=== PATIENT | female | born 1995 | race Caucasian/White ===

== ENCOUNTER 2020-01-26 11:01 | Outpatient (CLI) | payer OTHER, SELFPAY ==
[2020-01-27 14:19] LABS: SARS-CoV-2 RNA PCR Negative
== END 2020-01-26 11:02 | disposition home or self-care (01) ==
LOC: CHSLAB 11:15
PROVIDERS: PCP Internal Medicine; Visit Provider Internal Medicine
DX: Z20.828 Contact with and (suspected) exposure to other viral communicable diseases (principal)
CPT/HCPCS: 87635; C9803; U0003

== ENCOUNTER 2020-06-17 09:10 | Outpatient (CLI) | payer OTHER, SELFPAY ==
[2020-06-17 10:09] LABS: SARS-CoV-2 Ag Positive (Negative)
== END 2020-06-17 09:11 | disposition home or self-care (01) ==
LOC: CHSLAB 09:11
PROVIDERS: PCP Internal Medicine; Visit Provider Internal Medicine
DX: U07.1 COVID-19 (principal)
CPT/HCPCS: 87426; C9803

== ENCOUNTER 2020-08-16 08:05 | Outpatient (CLI) | payer OTHER, SELFPAY ==
--- NOTE | ~2020-08-16 | US_ITS ---
EXAMINATION: US pelvic complete w TV EXAM DATE: 08/16/2020 08:56 INDICATION: Irregular menstruation . TECHNIQUE: Pelvic transabdominal and transvaginal sonogram was performed. There are multiple graysca le and Doppler images available for interpretation. There is no prior study for comparison. FINDINGS: Uterus measures 6.3 x 3.4 x 4.6 cm, and is morphologically normal. Endometrial stripe malorie sures 5 mm, within normal limits. There is no free pelvic fluid. Right adnexa: The ovary measures 1.5 x 3.7 x 1.4 cm and is morphologically normal. Ovarian vascular f low confirmed. Left adnexa: The ovary measures 1.9 x 3.0 x 1.8 cm and is morphologically normal. Ovarian vascular fl ow confirmed. IMPRESSION: 1. Unremarkable pelvic ultrasound exam. Reviewed, dictated and finalized at location B. R SECURITY ADMINISTRATOR
== END 2020-08-16 08:06 | disposition home or self-care (01) ==
LOC: CHSIMG 08:09
PROVIDERS: PCP Internal Medicine; Visit Provider Obstetrics & Gynecology
DX: N92.6 Irregular menstruation, unspecified (principal)
CPT/HCPCS: 76830; 76856

== ENCOUNTER 2020-12-01 07:29 | Outpatient (CLI) | payer OTHER, SELFPAY ==
--- NOTE | ~2020-12-01 | US_ITS ---
EXAMINATION: US OB <= 14 weeks fetus DATE: 12/01/2020 10:45 INDICATION: Gestational dating TECHNIQUE: Real-time transabdominal and transvaginal obstetric ultrasound. FINDINGS: Ultrasound dated 08/16/2020 The uterus measures 10.3 x 5.2 x 5.5 cm. There is an intrauterine gestational sac, with pole id entified. The crown rump length measures 1.25 cm, which correlates with a estimated gestational age of 7 weeks 3 days. heart tones are identified measuring 155 BPM. Right ovary is not visualize d. Left ovary is unremarkable measuring 3.1 x 2.5 x 1.4 cm. IMPRESSION: 1. SL IUP with an EGA of 7 weeks, 3 days (EDC by current ultrasound of 07/17/2021). Reviewed, dictated and finalized at location B. IMPRESSION: 1. SL IUP with an EGA of 7 weeks, 3 days (EDC by current ultrasound of 07/17/19).
[2020-12-01 08:03] LABS: Basophils Absolute Auto 0.04 K/mm3 (0.00-0.10); Basophils Percent Auto 0.4 % (0.0-1.0); Eosinophils Absolute Auto 0.14 K/mm3 (0.02-0.50); Eosinophils Percent Auto 1.5 % (1.0-6.0); Hematocrit 40.9 % (35.0-49.0); Hemoglobin 13.7 g/dL (12.0-15.0); Immature Granulocyte Absolute 0.04 K/mm3 (0.00-0.00); Immature Granulocyte Percent A 0.4 % (0.0-0.0); Lymphocytes Absolute Auto 1.87 K/mm3 (1.10-4.50); Lymphocytes Percent Auto 20.2 % (18.0-42.0); Mean Corpuscular HGB Conc 33.5 g/dL (32.0-36.0); Mean Corpuscular Volume 86.7 fL (78.0-102.0); Mean Platelet Volume 10.1 fl (9.2-11.8); Monocytes Absolute Auto 0.41 K/mm3 (0.10-0.90); Monocytes Percent Auto 4.4 % (2.0-11.0); Neutrophils Absolute Auto 6.8 K/mm3 (1.7-7.2); Neutrophils Percent Auto 73.1 % (50.0-70.0); Platelet Count Result 324 K/mm3 (150-420); Red Blood Count 4.72 M/mm3 (4.20-5.40); Red Cell Distribution Width 12.6 % (11.6-14.4); White Blood Count 9.3 K/mm3 (4.8-10.8)
[2020-12-01 09:14] LABS: HIV 1 P24 AG Negative (Negative); HIV 1/2 AB Negative (Negative)
[2020-12-04 12:46] LABS: RPR Screen Non-Reactive (Non-Reactive)
[2020-12-04 14:10] LABS: Rubella IgG Antibody <0.90 Index
[2020-12-04 16:16] LABS: CMV IgG Antibody <0.60 U/mL (<0.60)
[2020-12-04 19:33] LABS: Hepatitis B Surface Antigen Nonreactive (Nonreactive)
== END 2020-12-01 07:30 | disposition home or self-care (01) ==
LOC: CHSIMG 07:31
PROVIDERS: PCP Internal Medicine; Visit Provider Obstetrics & Gynecology
DX: N92.5 Other specified irregular menstruation (principal)
CPT/HCPCS: 36415; 76801; 84702; 85025; 86592; 86644; 86703; 86747; 86762; 86787; 86850; 86900; 86901; 87086; 87088

== ENCOUNTER 2021-04-25 07:14 | Outpatient (CLI) | payer OTHER, SELFPAY ==
[2021-04-25 07:38] LABS: Basophils Absolute Auto 0.03 K/mm3 (0.00-0.10); Basophils Percent Auto 0.3 % (0.0-1.0); Eosinophils Absolute Auto 0.13 K/mm3 (0.02-0.50); Eosinophils Percent Auto 1.3 % (1.0-6.0); Hematocrit 36.1 % (35.0-49.0); Hemoglobin 11.8 g/dL (12.0-15.0); Immature Granulocyte Absolute 0.07 K/mm3 (0.00-0.00); Immature Granulocyte Percent A 0.7 % (0.0-0.0); Lymphocytes Absolute Auto 1.49 K/mm3 (1.10-4.50); Lymphocytes Percent Auto 15.2 % (18.0-42.0); Mean Corpuscular HGB Conc 32.7 g/dL (32.0-36.0); Mean Corpuscular Hemoglobin 29.5 pg (27.0-31.0); Mean Corpuscular Volume 90.3 fL (78.0-102.0); Mean Platelet Volume 9.9 fl (9.2-11.8); Monocytes Absolute Auto 0.55 K/mm3 (0.10-0.90); Monocytes Percent Auto 5.6 % (2.0-11.0); Neutrophils Absolute Auto 7.5 K/mm3 (1.7-7.2); Neutrophils Percent Auto 76.9 % (50.0-70.0); Platelet Count Result 259 K/mm3 (150-420); Red Cell Distribution Width 13.6 % (11.6-14.4); White Blood Count 9.8 K/mm3 (4.8-10.8)
[2021-04-25 08:09] LABS: Glucose 1 Hour PP 50gm Dose 120 mg/dL (70-130)
[2021-04-25 08:43] LABS: HIV 1 P24 AG Negative (Negative); HIV 1/2 AB Negative (Negative)
== END 2021-04-25 07:15 | disposition home or self-care (01) ==
LOC: CHSLAB 07:16
PROVIDERS: Obstetrics & Gynecology; PCP Internal Medicine; Visit Provider Obstetrics & Gynecology
DX: Z34.02 Encounter for supervision of normal first pregnancy, second trimester (principal)
CPT/HCPCS: 36415; 82947; 85025; 86703

== ENCOUNTER 2021-07-11 15:45 | Inpatient (IN) | payer OTHER, SELFPAY ==
[2021-07-11] VITALS (92 sets, daily range): BP systolic 99–147; BP diastolic 41–105; PULSE 74–180; RESP 16–18; TEMP 36.9–37.1; O2SAT 91–100; BMI 32.4
[2021-07-11] MEDS: DINOPROSTONE 10 MG VAG INSERT VAGINAL (16:57)
[2021-07-11 17:06] LABS: Basophils Percent Auto 0.2 % (0.2-1.2); Eosinophils Absolute Auto 0.1 K/mm3 (0-0.3); Eosinophils Percent Auto 0.9 % (0-4.4); Hematocrit 36.6 % (37.0-47.0); Hemoglobin 12.6 g/dL (12.0-15.0); Immature Granulocyte Absolute 0.04 K/mm3 (0.00-0.031); Immature Granulocyte Percent A 0.4 % (0-0.5); Lymphocytes Absolute Auto 1.85 K/mm3 (0.9-3.2); Lymphocytes Percent Auto 20.4 % (18.3-44.2); Mean Corpuscular HGB Conc 34.4 g/dl (32-36); Mean Corpuscular Hemoglobin 29.6 pg (26-34); Mean Corpuscular Volume 85.9 fl (80-100); Mean Platelet Volume 11.2 fl (7.4-10.4); Monocytes Absolute Auto 0.6 K/mm3 (0.1-0.6); Monocytes Percent Auto 6.1 % (2.6-8.5); Neutrophils Absolute Auto 6.5 K/mm3 (1.3-6.7); Platelet Count Result 219 k/mm3 (150-375); Red Blood Count 4.26 M/mm3 (4.2-5.4); Red Cell Distribution Width 14.1 % (11.5-14.5); White Blood Count 9.1 K/mm3 (4.5-10.0)
[2021-07-11] MEDS: fentaNYL CITRATE INJ (*CRX) 100 MCG/2 ML VIAL 50 MCG IV PUSH (18:33)
[2021-07-11] MEDS: LACTATED RINGERS 1,000 ML 999 ML IV CONT (20:10)
--- NOTE | 2021-07-11 20:33 | WPDANESEPP ---
Anes - Eval Pre Procedure Procedure: LAbor epidural Date/Time: 07/11/21 20:33 Surgeon: Bud Preop Diagnosis: Abd pain with contractions Pre Op Diagnosis: Induction of Labor Patient Data Age: 25 Gender: F Height: 1.6 m Weight: 83 kg Last Vital Signs Temp 98.4 F 07/11/21 18:09 Pulse 131 H 07/11/21 20:31 Resp 16 07/11/21 19:08 BP 128/105 H 07/11/21 20:31 Pulse Ox 100 07/11/21 20:33 Allergies Allergy/AdvReac Type Severity Reaction Status Date / Time hydrocodone Allergy Mild Rash Verified 06/29/21 15:25 Home Medications Medication Instructions Recorded Confirmed Type vitamins-iron fumarate 65 1 tablet PO DAILY 06/20/21 07/06/21 History mg iron-folic acid 1 mg tablet Laboratory Tests 07/11/21 07/11/21 07/11/21 16:50 16:50 16:50 WBC 9.1 K/mm3 K/mm3 (4.5-10.0) RBC 4.26 M/mm3 M/mm3 (4.2-5.4) Hgb 12.6 g/dL g/dL (12.0-15.0) Hct 36.6 % L % (37.0-47.0) MCV 85.9 fl fl (80-100) MCH 29.6 pg pg (26-34) MCHC 34.4 g/dl g/dl (32-36) RDW 14.1 % % (11.5-14.5) Plt Count 219 k/mm3 k/mm3 (150-375) MPV 11.2 fl H fl (7.4-10.4) Immature Gran % (Auto) 0.4 % % (0-0.5) Neut % (Auto) 72.0 % % (45.5-73.1) Lymph % (Auto) 20.4 % % (18.3-44.2) [place] % (Auto) 6.1 % % (2.6-8.5) Eos % (Auto) 0.9 % % (0-4.4) Baso % (Auto) 0.2 % % (0.2-1.2) Lymph # (Auto) 1.85 K/mm3 K/mm3 (0.9-3.2) [place] # (Auto) 0.6 K/mm3 K/mm3 (0.1-0.6) Eos # (Auto) 0.1 K/mm3 K/mm3 (0-0.3) Baso # (Auto) 0.0 K/mm3 K/mm3 (0.0-0.1) Abs Immat Gran (auto) 0.04 K/mm3 H K/mm3 (0.00-0.031) Absolute Neuts (auto) 6.5 K/mm3 K/mm3 (1.3-6.7) Absolute Nucleated RBC 0.0 K/mm3 K/mm3 (0.0-0.012) Nucleated RBC % 0.0 % % (0.0-0.2) RPR Pending Blood Type O Positive Antibody Screen Negative Patient hx anesthesia problems: none Family hx anesthesia problems: none Results Review: All pre-operative results and documents have been reviewed as part of the pre-operative evaluation. [facility] Past Medical History Medical History Over weight and not yet delivered Surgical History Surgical History Osseo teeth removed Family History Family History Mother Hypertension Father Hypertension Grandparent Diabetes mellitus Hypertension Grandparent No problems noted. Grandparent Diabetes mellitus Liver cancer Social History Social History Smoking status: Never smoker Second hand tobacco smoke exposure: No Alcohol intake: never Substance use: never Additional living arrangements comments: spouse Additional occupation/education comments: clerical Gender identity (if verbalized by the patient): Female Sexual Orientation (if Verbalized by the Patient): Straight or Heterosexual Spiritual care concerns: No Exam Day of Procedure 07/11/21 20:33 Patient weight: obese Airway: Mallampati scale class II Neurological: alert and oriented
[2021-07-11] MEDS: fentaNYL CITRATE INJ (*CRX) 100 MCG/2 ML VIAL IV PUSH (20:45)
[2021-07-12] VITALS (213 sets, daily range): BP systolic 100–135; BP diastolic 37–93; PULSE 59–124; RESP 16–18; TEMP 36.5–37.7; O2SAT 80–100
[2021-07-12] MEDS: ONDANSETRON INJ 4 MG/2 ML VIAL IV PUSH (03:40)
[2021-07-12] MEDS: OXYTOCIN 30 UNITS/NS 500 ML 30 UNITS/500 ML BAG IV CONT ×2 (04:40→12:27)
[2021-07-12] MEDS: LACTATED RINGERS 1,000 ML 999 ML IV CONT (07:38)
--- NOTE | 2021-07-12 12:27 | WPDOBADMIT ---
Obstetrics - Admit Note Admission Note: record reviewed. No pertinent additions to the history and/or any subsequent changes in the physical findings that are not consistent with the expected course of the were found. Additions to the history and/or subsequent changes in the physical findings follow. None.
--- NOTE | 2021-07-12 12:27 | WPDHPUPDATE1 ---
History and Physical Update Update Date/Time: 07/12/21 12:27 History and Physical has been reviewed, including an updated exam of the patient. There are NO changes in the patient's condition. Risks, benefits, and alternatives have been discussed and questions answered. Patient agrees to proceed with procedure.
--- NOTE | 2021-07-12 12:27 | PM.OBPRVD ---
OB - Delivery Note Procedure Route of delivery: Episiotomy description: None Laceration Description: Perineal - 3rd Degree and Vaginal - 1st Degree Delivery repair: vicryl and chromic Specimen: No Quantitative Blood Loss (ml): 600 Anesthesia type: Epidural Disposition: floor Narrative: Patient prepped and draped usual manner for this procedure. Maternal expulsive efforts readily delivered vertex with nuchal cord noted and delivered through. Cord clamped and cut placenta delivered spontaneously. Cervix vagina vulva were inspected. Partial third-degree laceration was noted as well as bilateral sulcus tears. First the sulcus tears repaired with a 2-0 chromic in a running interlocking manner on both angles with good approximation hemostasis noted. The rectal sphincter was then reapproximated using 0 Vicryl in 3 separate single throws with good approximation noted. The perineal separation was then closed using 2-0 chromic in running interlocking manner interrupted sutures to bring the deep tissue together in the subcuticular layer to approximate the perineum. This point seizure was considered terminated uterus was well contracted there was a small amount of oozing from general superficial lacerations or for packing was left in place and be removed in 20-30 minutes. Immediate postoperative condition of mother and baby were excellent. [place] Baby Weeks of gestation at delivery: 39 gender: Female Weight (pounds): 7 Weight (ounces): 15 presentation: vertex Placenta delivery description: Spontaneous cord vessel description: 3 Vessels score one minute: 9 score five minutes: 9 AMG Delivery Billing Delivery Delivery: Delivery Charge
[2021-07-12] MEDS: IBUPROFEN 600 MG TABLET PO ×2 (13:42→21:42)
[2021-07-12] MEDS: oxyCODONE/ACETAMINOPHEN (*CRX) 5-325 MG TABLET 1 TABLET PO ×2 (14:13→21:42)
[2021-07-12] MEDS: BENZOCAINE 20% AER SPR (*SP) 56 GM CAN 1 SPRAY TOPICAL (14:14)
[2021-07-12] MEDS: WITCH HAZEL 40 PADS 1 PAD TOPICAL (14:14)
--- NOTE | 2021-07-12 16:37 | OBPPTRN ---
1515-Patient transferred to post room #281 via wheelchair. Support person present. Oriented to unit, room, information board, rooming in, admission packet and security measures. Patient verbalizes understanding.
--- NOTE | 2021-07-12 17:15 | PC.NURSE ---
1530 - 1630 Introductions were made and mother led the discussion of her desires and plans to feed her baby. Discussed how to watch for early feeding cues, place infant skin to skin, then feeding baby when infant is ready or every 2-3 hours. Reviewed positioning/alignment and mother chose to attempt with side-lying. RN assisted mother with to the right breast using nipple to nose teaching wide gape open mouth (asymmetrical 140-degree latch). No latch in this position. Reviewed there is to be no pain with , how to detach infant from the breast, visuals to watch for to confirm effective . Reviewed effective latching with resources with visual handout. Repositioned mother in a semi-reclined position for attempts. RN assisted to right breast with mother in semi-reclined positioned with a modified football hold. Nipple tenderness is relieved with improving positioning and effective latching. was able to maintain optimal latch for 5-7 min with swallowing heard. placed skin to skin and offered left breast with no latching at this time. Mother voiced understanding how to watch for feeding cues for readiness, how to stimulate to initiate feeding, to feed when she sees feeding cues, 8-12 times in 24 hours approximately every 2-3 hours from the start of the last feeding or she has discomfort with nursing. Reviewed handwashing to prevent infection before and after taking care of her baby. Reported to primary RN.
[2021-07-12] MEDS: DOCUSATE SODIUM 100 MG CAPSULE PO (17:35)
[2021-07-13 03:22] LABS: Hematocrit 35.5 % (37.0-47.0); Hemoglobin 10.8 g/dL (12.0-15.0)
[2021-07-13] MEDS: IBUPROFEN 600 MG TABLET PO ×2 (03:25→16:09)
[2021-07-13 05:55] LABS: Rapid Plasma Reagin Non-Reactive (NonReactive)
--- NOTE | 2021-07-13 07:41 | WPDANLDPN2 ---
Anes-Prog Note L&D Date/Time: 07/13/21 07:41 Comfortable throughout: labor and delivery Neuraxial method: epidural Neuro status: Neuro function grossly intact. Cardiovascular status: normal Respiratory status: normal Airway patency: baseline Mental status: baseline Post-Op hydration status: normal Vital Signs: Last Vital Signs Temp 36.5 C 07/12/21 19:25 Pulse 111 H 07/12/21 19:25 Resp 16 07/12/21 19:25 BP 123/70 07/12/21 19:25 Pulse Ox 98 07/12/21 17:00 Pain score (VAS): 0 I/O: Intake & Output 07/12/21 07/12/21 07/13/21 15:59 23:59 07:59 Intake Total 500 Balance 500 Post-procedural complaints: none Patient feedback: Patient satisfied with anesthetic care.
[2021-07-13] MEDS: DOCUSATE SODIUM 100 MG CAPSULE PO ×2 (07:59→16:09)
[2021-07-13] MEDS: MULTIVIT/MIN/PREN/FOL AC/IRON TABLET 1 TAB PO (07:59)
[2021-07-13] MEDS: ACETAMINOPHEN 325 MG TABLET 650 MG PO (08:01)
[2021-07-13 08:15] VITALS: BP 115/65; PULSE 104; RESP 16; TEMP 36.9; O2SAT 98
--- NOTE | 2021-07-13 09:19 | PC.NURSE ---
0865 -[id number] Consulted with patient, reviewed feeding cues, frequencies, duration of feedings, feeding elimination flow sheet, and signs of adequate intake. Primary RN is assisting with to right breast with football position encouraging infant with syringe filled formula to the nipple. Reviewed positioning/alignment, holding breast and asymmetrical latch on. Infant was unable to latch. Reviewed nipple to nose,waiting for big open gape, bringing chin first into the breast, mouth up and over nipple with nose near the breast. Nipple care reviewed. will open gape and with hold the nipple in the mouth or let the breast fall out of the mouth. does suck on gloved finger and bottle. Discussed risks and benefits of practicing with a nipple shield and pumping breast. Infant is placed skin to skin and parents consent to tools to be utilized. Instructed mother to call out for RN assistance if she is unable to latch infant for feeding or she has discomfort with nursing. Instructed feeding should be initiated three hours from start of last feeding or if feeding cues are noted before. Mother voiced understanding of information shared. Reported to primary RN. 0900 - Pump taken to the room for dad to wash and dry pump pieces. Instructions given to call out when pump parts are ready to be used.
--- NOTE | 2021-07-13 10:00 | P.PNOB_ITS ---
OB - PN: Subj Subjective Date/time seen: 07/13/21 10:00 Narrative: PPD#1 Latricia reports doing well today. 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 Her pain is controlled, tailbone pain is present, but less. She is tolerating regular diet, voiding, passing gas, and ambulating without issues. She is breast feeding. OB - PN: Obj Data Labs CBC & Chem 7: 07/13/21 03:18 Labs: Laboratory Results - last 24 hr 07/11/21 07/13/21 16:50 03:18 Hgb 10.8 L Hct 35.5 L RPR Non-reactive OB - PN A/P Assessment and Plan (1) Normal vaginal delivery: Code(s): O80 - Encounter for full-term uncomplicated delivery Status: Acute (2) Third degree perineal laceration: Code(s): O70.20 - Third degree perineal laceration during delivery, unspecified Status: Acute Plan day: 1 Plan: routine care Comments: - nurses to assist with breast feeding - continue pain management - plans for d/c home tomorrow Time Spent With Patient Time: Total time spent is greater than 50% in coordination of care (as documented) at patient's floor/unit and/or counseling patient: Review of Systems Constitutional: Constitutional: Denies chills, Denies fever(s) and Denies headache(s) Eyes: Eyes: Denies change in vision ENT: Denies dizziness and Denies headache(s) Cardiovascular: Cardiovascular: Denies chest pain, Denies palpitations and Denies dyspnea Respiratory: Respiratory: Denies cough and Denies dyspnea Gastrointestinal: Gastrointestinal: Denies nausea and Denies vomiting Neurologic: Denies dizziness and Denies headache(s) Endocrine: Endocrine: Denies palpitations Exam Const: General: cooperative, comfortable and no acute distress Orientation/consciousness: patient oriented x3 Resp: Effort & Inspection: normal respiratory effort Auscultation: clear to auscultation bilaterally Cardio: Rate: regular rate GI: Inspection: non-distended GI Palp: No abdominal tenderness and Yes Soft to palpation Auscultation: normal bowel sounds : Other: fundus firm Skin: General skin exam: normal color Neuro: General: patient oriented x3 Extrem: General: normal to inspection Psych: Appearance: grossly normal Affect: normal affect Attitude: cooperative
[2021-07-13] MEDS: oxyCODONE/ACETAMINOPHEN (*CRX) 5-325 MG TABLET 1 TABLET PO ×2 (10:46→16:10)
--- NOTE | 2021-07-13 14:56 | PC.NURSE ---
1030 -Breast pump provided due to ineffective latch with . Reviewed information regarding pump care, hand washing, nipple care and pumping 8 times in 24 hours (1-2 at night) for 10-15 minutes. Discussed she may want to pump after feedings or between feedings. If after feeding, rest for 5-10 minutes. Get something to eat/drink, use the restroom, then pump. Collection and storage of breastmilk per mom and baby guide. Encouraged mom to place infant skin to skin, breast massage and use hand expression and/or a breast pump in a relaxing atmosphere. Reviewed recording pumping schedule on the feeding sheet. 0.3ml of colostrum spoon fed to infant. Blood sugar was good. 1230 - 1300 Nipple shield provided to mother due to ineffective feedings. will show wide open gape but will not suck and will tongue the nipple. Infant has had only two effective latches since with maximum assistance. Reviewed good handwashing, cleaning the nipple shield and application. Discussed with mom the nipple shield precautions and possible complications. Mom and baby guide referred to as a resource for using a nipple shield, out-patient services and when to call a provider. Mom voiced understanding of the importance of hand expression, nipple stimulation and initiating a pumping schedule if infant continues to nurse with the shield. 1300 - Reviewed information regarding pump care, hand washing, nipple care and pumping 8 times in 24 hours (1-2 at night) for 10-15 minutes. Collection and storage of breastmilk per mom and baby guide. Encouraged mom to place skin to skin, breast massage and use hand expression and/or a breast pump in a relaxing atmosphere. Reviewed recording pumping schedule on the feeding sheet. Referred to the visual handout along with the mom and baby guide as a resource and when to call a provider. Dad will call out after pumping is complete for collecting the colostrum. 1330 - Approximately 0.5ml was spoon fed to . 1340 - Infant is in the nursery and is not content. Parents discussed supplementing which had initiated last night. 1345 - Parents will supplement and continue to work with infant to latch with the nipple shield.
[2021-07-13 19:15] VITALS: BP 101/66; PULSE 92; RESP 16; TEMP 36.8; O2SAT 98
[2021-07-14] MEDS: IBUPROFEN 600 MG TABLET PO ×2 (01:02→07:38)
--- NOTE | 2021-07-14 05:29 | PC.NURSE ---
Patient viewed the discharge video Mother & Baby Care, The First Two Weeks . Patient was given the opportunity and encouraged to ask questions. Patient verbalized understanding of information shared and has been given the mother/baby guide for home reference.
--- NOTE | 2021-07-14 08:29 | P.PNOB_ITS ---
OB - PN: Subj Subjective Date/time seen: 07/14/21 08:29 Narrative: PPD#2 Latricia reports doing well today. 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 Her pain is controlled. She is tolerating regular diet, voiding, passing gas, and ambulating without issues. She is breast feeding. She would like to go home today OB - PN: Obj Data Labs CBC & Chem 7: 07/13/21 03:18 OB - PN A/P Assessment and Plan (1) Normal vaginal delivery: Code(s): O80 - Encounter for full-term uncomplicated delivery Status: Acute (2) Third degree perineal laceration: Code(s): O70.20 - Third degree perineal laceration during delivery, unspecified Status: Acute Plan day: 2 Plan: routine care and discharge home Comments: - continue pain meds/stool softeners - Pelvic rest; take meds as prescribed - ER return precautions: fever, n/v/abd pain, bleeding, HTN Time Spent With Patient Time: Total time spent is greater than 50% in coordination of care (as do cumented) at patient's floor/unit and/or counseling patient: Review of Systems Constitutional: Constitutional: Denies chills, Denies fever(s) and Denies headache(s) Eyes: Eyes: Denies change in vision ENT: Denies dizziness and Denies headache(s) Cardiovascular: Cardiovascular: Denies chest pain, Denies palpitations and Denies dyspnea Respiratory: Respiratory: Denies cough and Denies dyspnea Gastrointestinal: Gastrointestinal: Denies nausea and Denies vomiting Neurologic: Denies dizziness and Denies headache(s) Endocrine: Endocrine: Denies palpitations Exam Const: General: cooperative, comfortable and no acute distress Orientation/consciousness: patient oriented x3 Resp: Effort & Inspection: normal respiratory effort Auscultation: clear to auscultation bilaterally Cardio: Rate: regular rate GI: Inspection: non-distended GI Palp: No abdominal tenderness and Yes Soft to palpation Auscultation: normal bowel sounds : Other: fundus firm Skin: General skin exam: normal color Neuro: General: patient oriented x3 Extrem: General: normal to inspection Psych: Appearance: grossly normal Affect: normal affect Attitude: cooperative
--- NOTE | 2021-07-14 09:42 | PM.OBDSVD ---
DS: Admitting Diagnosis Discharge Date 07/14/21 Admitting Diagnosis induction of labor DS: Discharge Diagnosis Discharge Diagnosis (1) Normal vaginal delivery: Code(s): O80 - Encounter for full-term uncomplicated delivery Status: Acute (2) Third degree perineal laceration: Code(s): O70.20 - Third degree perineal laceration during delivery, unspecified Status: Acute OB - DS: Summary OB Procedures : Ultrasound OB Procedures Intrapartum: Spontaneous Vag Delivery OB Procedures: : None Peripartum Data Infant Delivery Method: Natural Vaginal Laceration Description: Perineal - 3rd Degree complications: none 1: Gender: Female Disposition of : home Status at Discharge Functional status at discharge: independent ambulation Overall status at discharge: patient is back to baseline Time Spent with Patient Time attestation: Total time spent providing and/or coordinating discharge services: Time spent: Less than 30 minutes Exam Const: General: cooperative, comfortable and no acute distress Orientation/consciousness: patient oriented x3 Resp: Effort & Inspection: normal respiratory effort Auscultation: clear to auscultation bilaterally Cardio: Rate: regular rate GI: Inspection: non-distended GI Palp: No abdominal tenderness and Yes Soft to palpation Auscultation: normal bowel sounds : Other: fundus firm Skin: General skin exam: normal color Neuro: General: patient oriented x3 Extrem: General: normal to inspection Psych: Appearance: grossly normal Affect: normal affect Attitude: cooperative Discharge Plan Discharge Attending physician on discharge: Najma Farrell Discharging Clinician: Najma Farrell Anticipated Discharge Date/Time: 07/14/21 15:00 Patient Disposition: Home, Self-Care Activity: may shower, may drive after 2 weeks and pelvic rest Diet: regular Patient Instructions: Antibiotic Form Stand Alone Forms: General Discharge Information Follow-up/Referrals: Natan Holguin MD [Physician] - 2 Weeks Discharge Medications: New acetaminophen [Mapap (acetaminophen)] 325 mg Tablet 650 mg PO Q6H PRN (Reason: Mild Pain (1-3) Or Headache) 10 Days Qty: 60 RF: 0 oxycodone-acetaminophen 5-325 mg Tablet 1 tablet PO Q6H PRN (Reason: Pain Rated 7-10) 3 Days Qty: 20 RF: 0 docusate sodium 100 mg Capsule 100 mg PO BID 30 Days Qty: 60 RF: 0 ibuprofen 600 mg Tablet 600 mg PO Q6H PRN (Reason: Cramping) 10 Days Qty: 40 RF: 0 Continued vit-iron fum-folic ac 65 mg iron- 1 mg tablet 1 tablet PO DAILY 90 Days Qty: 90 RF: 0 Date of admission: 07/11/21 15:45 Primary Care Provider: Omid Emmanuel Admitting Provider: Natan Holguin Attending physician on admission: Natan Holguin Condition: Stable
[2021-07-14] MEDS: DOCUSATE SODIUM 100 MG CAPSULE PO (09:44)
[2021-07-14] MEDS: MEASLES,MUMPS,RUBELLA VACCINE 0.5 ML VIAL (09:44)
[2021-07-14] MEDS: MULTIVIT/MIN/PREN/FOL AC/IRON TABLET 1 TAB PO (09:44)
[2021-07-14 10:18] VITALS: BP 108/74; PULSE 91; RESP 20; TEMP 36.6
--- NOTE | 2021-07-14 11:07 | PC.NURSE ---
0047 - 0557 Mother led the conversation with regards to her experience feeding her baby so far. Reminded parents to use good handwashing to prevent infection. has had appropriate feedings in the past 24 hours and meets the outcomes for weight, output and jaundice. Parents state they feels confident to continue attempting optimal latch with /pumping/supplementing her at home. Reviewed production of human milk, transition of milk, signs of adequate intake and engorgement prevention/relief and when to call the infant care provider using the mom and baby guide. Reviewed community resources and outpatient services as listed in the mom and baby guide/[facility] website. Reinforced watching for feeding cues with responsive feeding and how to stimulate infant to initiate feeding three hours from the start of the last feeding. Parents voiced understanding of information shared. Reported to primary RN.
[2021-07-17 11:29] VITALS: BP 124/73; PULSE 106; RESP 20; TEMP 37.2; O2SAT 100
== END 2021-07-14 12:20 | disposition home or self-care (01) | DRG 768 ==
LOC: ANHOB2 07-14 08:47 → ANHLDR 07-17 11:07 → ANHOB2 07-17 11:07
PROVIDERS: Admitting Provider Obstetrics & Gynecology; PCP Internal Medicine; Visit Provider Obstetrics & Gynecology
DX: O69.81X0 Labor and delivery complicated by cord around neck, without compression, not applicable or unspecified (principal); Z37.0 Single live birth; O70.20 Third degree perineal laceration during delivery, unspecified; Z3A.39 39 weeks gestation of pregnancy
CPT/HCPCS: 36415; 85014; 85018; 85025; 86592; 86850; 86900; 86901; 90710; A9270; J2405; J2590; J2795; J3010; J7120

== ENCOUNTER 2021-10-25 16:39 | Outpatient (CLI) | payer OTHER, SELFPAY ==
[2021-10-25 17:06] LABS: Basophils Absolute Auto 0.03 K/mm3 (0.00-0.10); Basophils Percent Auto 0.5 % (0.0-1.0); Eosinophils Absolute Auto 0.16 K/mm3 (0.02-0.50); Eosinophils Percent Auto 2.7 % (1.0-6.0); Hematocrit 39.1 % (35.0-49.0); Hemoglobin 12.8 g/dL (12.0-15.0); Immature Granulocyte Absolute 0.01 K/mm3 (0.00-0.00); Immature Granulocyte Percent A 0.2 % (0.0-0.0); Lymphocytes Absolute Auto 1.81 K/mm3 (1.10-4.50); Mean Corpuscular HGB Conc 32.7 g/dL (32.0-36.0); Mean Corpuscular Hemoglobin 27.6 pg (27.0-31.0); Mean Corpuscular Volume 84.3 fL (78.0-102.0); Mean Platelet Volume 10.1 fl (9.2-11.8); Monocytes Absolute Auto 0.46 K/mm3 (0.10-0.90); Monocytes Percent Auto 7.9 % (2.0-11.0); Neutrophils Absolute Auto 3.4 K/mm3 (1.7-7.2); Neutrophils Percent Auto 57.7 % (50.0-70.0); Platelet Count Result 265 K/mm3 (150-420); Red Blood Count 4.64 M/mm3 (4.20-5.40); Red Cell Distribution Width 12.7 % (11.6-14.4); White Blood Count 5.8 K/mm3 (4.8-10.8)
[2021-10-25 17:23] LABS: Alanine Aminotransferase 97 U/L (14-59); Albumin Level 3.7 g/dL (3.4-5.0); Alkaline Phosphatase 162 U/L (46-116); Anion Gap 12 mmol/L (8-16); Aspartate Amino Transferase 64 U/L (15-37); Bilirubin,Total 0.2 mg/dL (0.00-1.00); Blood Urea Nitrogen 13 mg/dL (7-18); CRP 4.6 mg/dL (0.0-0.9); Calcium 8.5 mg/dL (8.5-10.1); Carbon Dioxide 23 mmol/L (21-32); Chloride 103 mmol/L (98-108); Estimated Glomerular Filt Rate > 60; Glucose 92 mg/dL (70-99); Osmolality Calculated 286 mOsm/kg (285-295); Potassium 2.9 mmol/L (3.5-5.1); Sodium 138 mmol/L (136-145); Total Protein 7.7 g/dL (6.4-8.2)
[2021-10-25 18:31] LABS: Erythrocyte Sedimentation Rate 24 mm/hr (0-15)
[2021-10-30 16:50] LABS: Gliadin AB, IgG 1.8 U/mL (<15.0); Reticulin IgA Negative (Negative); TTG IGA AB <1.0 U/mL (<15.0)
[2021-11-03 13:43] LABS: ANCA Screen Negative (Negative); Myeloperoxidase Ab <1.0 AI (<1.0); Proteinase-3 Ab <1.0 AI (<1.0); S cerevisiae Ab (IgA) 4.5 U (<=20.0); S cerevisiae Ab (IgG) 13.3 U (<=20.0)
== END 2021-10-25 16:40 | disposition home or self-care (01) ==
LOC: CHSLAB 16:43
PROVIDERS: PCP Internal Medicine; Visit Provider Internal Medicine
DX: R19.7 Diarrhea, unspecified (principal)
CPT/HCPCS: 36415; 80053; 83516; 85025; 85652; 86036; 86140; 86255; 86671

== ENCOUNTER 2021-10-26 08:06 | Outpatient (CLI) | payer OTHER, SELFPAY ==
[2021-10-31 14:50] LABS: Rotavirus Stool Not Detected
== END 2021-10-26 08:07 | disposition home or self-care (01) ==
LOC: CHSLAB 08:08
PROVIDERS: PCP Internal Medicine; Visit Provider Internal Medicine
DX: R19.7 Diarrhea, unspecified (principal)
CPT/HCPCS: 87045; 87177; 87209; 87324; 87425; 87427

== ENCOUNTER 2021-10-27 11:46 | Outpatient (CLI) | payer OTHER, SELFPAY | END 2021-10-27 11:47 | disposition home or self-care (01) | LOC: CHSLAB 11:48 | PROVIDERS: PCP Internal Medicine; Visit Provider Internal Medicine | DX: E87.6 Hypokalemia (principal) | CPT/HCPCS: 36415; 84132 ==

== ENCOUNTER 2022-11-08 07:50 | Outpatient (CLI) | payer OTHER, SELFPAY ==
--- NOTE | ~2022-11-08 | US_ITS ---
Limited Abdominal Sonogram: Real-time sonographic imaging of the right upper quadrant was performed. Clinical History: Epigastric pain Findings: The liver appears echogenic/heterogeneous, with no evidence of mass lesion or bile duct di latation. Main portal vein demonstrates normal direction of flow. The gallbladder is well distended, and appears normal with no evidence of gallstone or wall thickening. The common bile duct measures 2 mm. The visualized pancreas, aorta, and IVC are unremarkable. Impression: Probable diffuse fatty infiltration of the liver. Reviewed, dictated and finalized at location M. Impression: Probable diffuse fatty infiltration of the liver.
== END 2022-11-08 07:51 | disposition home or self-care (01) ==
LOC: CHSIMG 07:51
PROVIDERS: PCP Internal Medicine; Visit Provider Internal Medicine
DX: R10.11 Right upper quadrant pain (principal)
CPT/HCPCS: 76705

== ENCOUNTER 2023-01-30 15:43 | Outpatient (CLI) | payer OTHER, SELFPAY ==
[2023-01-30 16:16] LABS: Basophils Absolute Auto 0.06 K/mm3 (0.00-0.10); Basophils Percent Auto 0.8 % (0.0-1.0); Eosinophils Absolute Auto 0.15 K/mm3 (0.02-0.50); Eosinophils Percent Auto 1.9 % (1.0-6.0); Hematocrit 37.2 % (35.0-49.0); Hemoglobin 12.3 g/dL (12.0-15.0); Immature Granulocyte Absolute 0.03 K/mm3 (0.00-0.00); Immature Granulocyte Percent A 0.4 % (0.0-0.0); Lymphocytes Absolute Auto 2.17 K/mm3 (1.10-4.50); Lymphocytes Percent Auto 27.9 % (18.0-42.0); Mean Corpuscular HGB Conc 33.1 g/dL (32.0-36.0); Mean Corpuscular Hemoglobin 28.7 pg (27.0-31.0); Mean Corpuscular Volume 86.9 fL (78.0-102.0); Mean Platelet Volume 10.2 fl (9.2-11.8); Monocytes Absolute Auto 0.62 K/mm3 (0.10-0.90); Neutrophils Absolute Auto 4.8 K/mm3 (1.7-7.2); Platelet Count Result 298 K/mm3 (150-420); Red Blood Count 4.28 M/mm3 (4.20-5.40); Red Cell Distribution Width 13.4 % (11.6-14.4); White Blood Count 7.8 K/mm3 (4.8-10.8)
[2023-01-30 17:02] LABS: HIV 1 P24 AG Negative (Negative); HIV 1/2 AB Negative (Negative)
[2023-02-03 14:53] LABS: RPR Screen Non-Reactive (Non-Reactive)
[2023-02-03 19:07] LABS: Hepatitis B Surface Antigen Nonreactive (Nonreactive)
[2023-02-04 13:02] LABS: CMV IgG Antibody <0.60 U/mL (<0.60)
[2023-02-04 15:11] LABS: Rubella IgG Antibody 1.97 Index
== END 2023-01-30 15:44 | disposition home or self-care (01) ==
LOC: CHSLAB 15:45
PROVIDERS: PCP Internal Medicine; Visit Provider Obstetrics & Gynecology
DX: N91.2 Amenorrhea, unspecified (principal)
CPT/HCPCS: 36415; 84702; 85025; 86592; 86644; 86747; 86762; 86787; 86850; 86900; 86901; 87077; 87086; 87088; 87186; 87340; 87806

== ENCOUNTER 2023-06-25 08:00 | Outpatient (CLI) | payer OTHER, SELFPAY ==
[2023-06-25 08:16] LABS: Basophils Absolute Auto 0.02 K/mm3 (0.00-0.10); Basophils Percent Auto 0.3 % (0.0-1.0); Eosinophils Absolute Auto 0.13 K/mm3 (0.02-0.50); Eosinophils Percent Auto 1.8 % (1.0-6.0); Hematocrit 34.3 % (35.0-49.0); Hemoglobin 11.2 g/dL (12.0-15.0); Immature Granulocyte Absolute 0.03 K/mm3 (0.00-0.00); Immature Granulocyte Percent A 0.4 % (0.0-0.0); Lymphocytes Absolute Auto 1.53 K/mm3 (1.10-4.50); Lymphocytes Percent Auto 20.6 % (18.0-42.0); Mean Corpuscular HGB Conc 32.7 g/dL (32.0-36.0); Mean Corpuscular Hemoglobin 28.3 pg (27.0-31.0); Mean Corpuscular Volume 86.6 fL (78.0-102.0); Mean Platelet Volume 9.6 fl (9.2-11.8); Monocytes Absolute Auto 0.55 K/mm3 (0.10-0.90); Monocytes Percent Auto 7.4 % (2.0-11.0); Neutrophils Absolute Auto 5.2 K/mm3 (1.7-7.2); Neutrophils Percent Auto 69.5 % (50.0-70.0); Platelet Count Result 235 K/mm3 (150-420); Red Blood Count 3.96 M/mm3 (4.20-5.40); Red Cell Distribution Width 13.6 % (11.6-14.4); White Blood Count 7.4 K/mm3 (4.8-10.8)
[2023-06-25 08:53] LABS: Glucose 1 Hour PP 50gm Dose 94 mg/dL (70-130)
[2023-06-25 09:08] LABS: HIV 1 P24 AG Negative (Negative); HIV 1/2 AB Negative (Negative)
== END 2023-06-25 08:01 | disposition home or self-care (01) ==
LOC: CHSLAB 08:02
PROVIDERS: PCP Internal Medicine; Visit Provider Student in an Organized Health Care Education/Training Program
DX: Z34.90 Encounter for supervision of normal pregnancy, unspecified, unspecified trimester (principal)
CPT/HCPCS: 36415; 82947; 85025; 87806

== ENCOUNTER 2023-09-04 17:57 | Inpatient (IN) | payer OTHER, SELFPAY ==
[2023-09-04 18:45] VITALS: BP 129/92; PULSE 88
[2023-09-04 19:00] VITALS: BP 137/90; PULSE 87
[2023-09-04 19:00] LABS: Basophils Percent Auto 0.5 % (0.2-1.2); Eosinophils Absolute Auto 0.1 K/mm3 (0-0.3); Hematocrit 36.7 % (37.0-47.0); Immature Granulocyte Absolute 0.03 K/mm3 (0.00-0.031); Immature Granulocyte Percent A 0.4 % (0-0.5); Lymphocytes Absolute Auto 2.41 K/mm3 (0.9-3.2); Lymphocytes Percent Auto 31.1 % (18.3-44.2); Mean Corpuscular HGB Conc 32.7 g/dl (32-36); Mean Corpuscular Hemoglobin 27.8 pg (26-34); Mean Platelet Volume 12.3 fl (7.4-10.4); Monocytes Absolute Auto 0.6 K/mm3 (0.1-0.6); Monocytes Percent Auto 7.1 % (2.6-8.5); Neutrophils Absolute Auto 4.6 K/mm3 (1.3-6.7); Neutrophils Percent Auto 59.9 % (45.5-73.1); Platelet Count Result 173 k/mm3 (150-375); Red Blood Count 4.32 M/mm3 (4.2-5.4); Red Cell Distribution Width 13.2 % (11.5-14.5); White Blood Count 7.8 K/mm3 (4.5-10.0)
--- NOTE | 2023-09-04 19:11 | LDADM ---
This patient, Latricia Hoffman, was admitted to Labor/Delivery/Recovery 104 on 09/04/23 at 17:57. Plans for labor, pain management and were discussed with patient. Patient/family oriented to hospital policies and general routines including ID bracelet, bed and alarms, visiting hours, pain management, procedures, bathroom and other care routines, personal items, smoking policy, room service/diet and guest tray routines, security routines, and visiting hours. Patient/Family are encouraged to report perceived risks to care and to ask questions if they do not understand what they are told or what they should do. See [facility] for further documentation.
[2023-09-05] VITALS (195 sets, daily range): BP systolic 97–208; BP diastolic 59–159; PULSE 53–218; RESP 16; TEMP 36.6–36.9; O2SAT 95–100
[2023-09-05] MEDS: LACTATED RINGERS 1,000 ML 125 ML IV CONT (00:13)
[2023-09-05] MEDS: OXYTOCIN 30 UNITS/NS 500 ML 30 UNITS/500 ML BAG IV CONT (00:36)
--- NOTE | 2023-09-05 02:52 | WPDANESEPPF ---
Anes - Initial Pre Proc Eval Procedure: Operation Date: 09/05/23 12:00 Proposed Procedures p Repeat Section - Natan Holguin MD Date/Time: 09/05/23 02:52 Surgeon: Natan Holguin MD Pre Op Diagnosis: Labor pain Pre Op Diagnosis: IOL Patient Data Age: 27 Gender: F Height: 1.57 m Weight: 78.471 kg Last Vital Signs Temp 36.9 C 09/05/23 00:00 Pulse 72 09/05/23 02:45 BP 118/84 09/05/23 02:45 O2 Del Method Room Air 09/04/23 19:11 Allergies Allergy/AdvReac Type Severity Reaction Status Date / Time hydrocodone Allergy Mild Rash Verified 09/02/23 13:42 Home Medications Medication Instructions Recorded Confirmed Type vitamins-iron fumarate 65 1 tablet PO DAILY 01/30/23 09/02/23 History mg iron-folic acid 1 mg tablet Laboratory Tests 09/04/23 18:53 WBC 7.8 K/mm3 (4.5-10.0) RBC 4.32 M/mm3 (4.2-5.4) Hgb 12.0 g/dL (12.0-15.0) Hct 36.7 L % (37.0-47.0) MCV 85.0 fl (80-100) MCH 27.8 pg (26-34) MCHC 32.7 g/dl (32-36) RDW 13.2 % (11.5-14.5) Plt Count 173 k/mm3 (150-375) MPV 12.3 H fl (7.4-10.4) Immature Gran % (Auto) 0.4 % (0-0.5) Neut % (Auto) 59.9 % (45.5-73.1) Lymph % (Auto) 31.1 % (18.3-44.2) [place] % (Auto) 7.1 % (2.6-8.5) Eos % (Auto) 1.0 % (0-4.4) Baso % (Auto) 0.5 % (0.2-1.2) Lymph # (Auto) 2.41 K/mm3 (0.9-3.2) [place] # (Auto) 0.6 K/mm3 (0.1-0.6) Eos # (Auto) 0.1 K/mm3 (0-0.3) Baso # (Auto) 0.0 K/mm3 (0.0-0.1) Abs Immat Gran (auto) 0.03 K/mm3 (0.00-0.031) Absolute Neuts (auto) 4.6 K/mm3 (1.3-6.7) Absolute Nucleated RBC 0.000 K/mm3 (0.0-0.012) Nucleated RBC % 0.0 % (0.0-0.2) RPR Pending Blood Type O Positive Antibody Screen Negative Patient hx anesthesia problems: none Family hx anesthesia problems: none Results Review: All pre-operative results and documents have been reviewed as part of the pre-operative evaluation. [facility] Past Medical History Medical History Over weight and not yet delivered Vaginal tear resulting from childbirth repaired 04/06/2022 Surgical History Surgical History [place] teeth removed Family History Family History Mother Hypertension Father Hypertension Grandparent Diabetes mellitus Hypertension Grandparent No problems noted. Grandparent Diabetes mellitus Liver cancer Social History Social History Smoking status: Never smoker Second hand tobacco smoke exposure: No Alcohol intake: never Substance use: never Substance use type: does not use Do You Feel Safe in your Home?: Yes Lack of Transportation: No Lack of Food: Never True Current Housing: I Have Housing Concerned About Future Housing: No Difficulty Paying Gas/Electric Bills: No Difficulty Paying for Meds: No Currently Unemployed: No Education: Decline to Answer Difficulty w/ Childcare or Family Care: No Living arrangements: other Additional living arrangements comments: spouse 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
--- NOTE | 2023-09-05 03:12 | WPDANESEPN ---
Anes - Epidural Procedure Note Date/Time: 09/05/23 03:12 Consent: I have discussed with the patient/family/POA, the placement of an epidural catheter and the use of epidural narcotic/local anesthetic for labor analgesia and/or postoperative pain management, including associated potential risks, benefits, complications and side effects. I have discussed alternative methods of labor analgesia and/or postoperative pain management. The patient/family/POA, understand(s) and wish(es) to proceed with epidural narcotic/local anesthetic for labor analgesia and/or postoperative pain management. Time-Out: A pre-procedural Time-Out was completed immediately before starting the procedure and confirmed: Patient Identification, Site, Procedure, Patient Position and the Availability of Requisite Equipment. Clinical Indications: Labor pain Epidural Insertion Note Patient position: sitting Skin prep: chlorhexidine and sterile drape Needle: 18g Tuohy-Schliff Catheter: 20g Unstyleted Technique: Loss of resistance. Level of insertion: L3/4 Catheter skin byron (cm): 10 Length in epidural space (cm): 5 Skin anesthesia: lidocaine 1% Test dose: 1.5% Lidocaine with 1:[id number] Epi, negative for subarachnoid Inj and negative for intravascular Inj Time of test dose: 03:04 Observations: tolerated well Complications: none
[2023-09-05] MEDS: diphenhydrAMINE HCl INJ 50 MG/ML VIAL 25 MG IV PUSH (07:05)
[2023-09-05 08:39] LABS: Rapid Plasma Reagin Non-Reactive (NonReactive)
--- NOTE | 2023-09-05 10:07 | WPDHPUPDATE1 ---
History and Physical Update Update Date/Time: 09/05/23 10:07 History and Physical has been reviewed, including an updated exam of the patient. There are NO changes in the patient's condition. Risks, benefits, and alternatives have been discussed and questions answered. Patient agrees to proceed with procedure.
--- NOTE | 2023-09-05 10:07 | PM.OBPRVD ---
OB - Vaginal Delivery Note Procedure Delivery date: 09/05/23 Induction method: None Delivery augmentation: Rupture of Membranes and Pitocin Delivery monitor: External FHT and Internal Uterine Route of delivery: Episiotomy description: None Laceration Description: Perineal - 3rd Degree Delivery repair: vicryl and chromic Specimen: No Quantitative Blood Loss (ml): 400 Anesthesia type: Epidural Disposition: Floor Complications: No immediate complications Narrative: Patient prepped and draped in the manner this procedure. Maternal expulsive efforts readily delivered vertex over intact perineum. Baby was gently delivered cord clamped cut and placenta delivered spontaneously. Partial 3rd degree laceration was noted. Rectal sphincter was approximated using 4 interrupted 0 Vicryl sutures good approximation noted. Vaginal apex was then approximated using 2-0 chromic in a running interlocking manner vaginal mucosa was approximated, deep tissue approximated, and subcuticular layer to approximate the perineum. At this point the procedure was considered terminated appropriate repair noted, no hematoma is appreciated. Immediate postoperative condition of mother and baby were both excellent. [place] Baby Weeks of gestation at delivery: 39 Infant gender: Male presentation: vertex position: Right Occiput Anterior Placenta delivery description: Spontaneous Cord Vessel Description: 3 Vessels, Nuchal Cord and Reduced AMG Delivery Billing Delivery Delivery: Delivery Charge
[2023-09-05] MEDS: OXYTOCIN 30 UNITS/NS 500 ML 30 UNITS/500 ML BAG 125 UNITS IV CONT (10:12)
[2023-09-05] MEDS: WITCH HAZEL 40 PADS 1 PAD TOPICAL (12:39)
[2023-09-05] MEDS: BENZOCAINE 20% AER SPR (*SP) 56 GM CAN 1 SPRAY TOPICAL (12:39)
[2023-09-05] MEDS: IBUPROFEN 600 MG TABLET PO ×2 (14:07→19:30)
[2023-09-05] MEDS: polyethylene glycoL 3350 17 GM POWD.PACK PO (14:07)
[2023-09-05] MEDS: ACETAMINOPHEN 325 MG TABLET 650 MG PO ×2 (18:04→23:30)
--- NOTE | 2023-09-05 18:22 | OBPPTRN ---
Addendum entered by Evita Rubin RN 09/05/23 18:24: on unit at 1318. Original Note: Patient transferred to post room #280 via wheelchair, baby boy Weston in crib at her side. Support person present. Oriented to unit, room, information board, rooming in, admission packet and security measures. Patient verbalizes understanding.
[2023-09-06 04:00] VITALS: BP 97/66; PULSE 98; RESP 16; TEMP 36.7; O2SAT 99
[2023-09-06] MEDS: IBUPROFEN 600 MG TABLET PO (04:00)
[2023-09-06 04:52] LABS: Hematocrit 29.9 % (37.0-47.0); Hemoglobin 9.8 g/dL (12.0-15.0)
--- NOTE | 2023-09-06 07:35 | WPDANLDPN2 ---
Anes-Prog Note L&D Date/Time: 09/06/23 07:35 Neuro status: Neuro function grossly intact. Cardiovascular status: normal Respiratory status: normal Airway patency: baseline Mental status: baseline Post-Op hydration status: normal Vital Signs: Last Vital Signs Temp 36.7 C 09/06/23 04:00 Pulse 98 09/06/23 04:00 Resp 16 09/06/23 04:00 BP 97/66 L 09/06/23 04:00 Pulse Ox 99 09/06/23 04:00 O2 Del Method Room Air 09/05/23 20:00 Pain score (VAS): 0 I/O: Intake & Output 09/05/23 09/05/23 09/06/23 15:59 23:59 07:59 Output Total 400 Balance -400 Post-procedural complaints: none Patient feedback: Patient satisfied with anesthetic care.
--- NOTE | 2023-09-06 07:52 | PM.OBDSVD ---
DS: Admitting Diagnosis Discharge Date 09/06/23 Admitting Diagnosis Intrauterine at term DS: Discharge Diagnosis Discharge Diagnosis (1) Normal vaginal delivery: Code(s): O80 - Encounter for full-term uncomplicated delivery Status: Acute (2) Third degree perineal laceration: Code(s): O70.20 - Third degree perineal laceration during delivery, unspecified Status: Acute OB - DS: Summary OB Procedures : None OB Procedures Intrapartum: Spontaneous Vag Delivery OB Procedures: : None Peripartum Data Laceration Description: Perineal - 3rd Degree Episiotomy description: None Procedures: Procedures Operation Date: 09/05/23 12:00 <No data on this case meets the specified criteria> Status at Discharge Functional status at discharge: independent ambulation Overall status at discharge: patient is back to baseline Time Spent with Patient Time attestation: Total time spent providing and/or coordinating discharge services: Time spent: Less than 30 minutes Exam Const: General: comfortable and no acute distress Resp: Effort & Inspection: normal respiratory effort Auscultation: clear to auscultation bilaterally Cardio: Rate: regular rate GI: GI Palp: Yes Soft to palpation Auscultation: normal bowel sounds Other: Fundus firm below umbilicus Psych: Appearance: grossly normal Mental Status: mental status grossly normal Affect: normal affect DS: Data Data Completed and Pending Labs on day of discharge: Labs from last 24 hours 09/06/23 09/04/23 04:01 18:53 Hgb 9.8 L Hct 29.9 L RPR Non-reactive Discharge Plan Discharge Discharging Clinician: Dawit Riojas Patient Disposition: Home, Self-Care Activity: as tolerated and pelvic rest Diet: regular and high fiber Patient Instructions: Antibiotic Form, Perineal Care (DC), Vaginal Delivery (DC) Stand Alone Forms: General Discharge Information Follow-up/Referrals: Natan Holguin MD [Physician] - 1 Week Discharge Medications: No Action vit-iron fum-folic ac 65 mg iron- 1 mg tablet 1 tablet PO DAILY Date of admission: 09/04/23 17:57 Primary Care Provider: Omid Emmanuel Admitting Provider: Natan Holguin Attending physician on admission: Natan Holguin Condition: Stable
[2023-09-06 07:58] VITALS: BP 111/71; PULSE 88; RESP 18; TEMP 36.6; O2SAT 99
[2023-09-06 08:00] VITALS: PULSE 88; RESP 18; O2SAT 99
[2023-09-06] MEDS: ACETAMINOPHEN 325 MG TABLET 650 MG PO (08:19)
[2023-09-06] MEDS: DOCUSATE SODIUM 100 MG CAPSULE PO (08:20)
[2023-09-06] MEDS: MULTIVIT/MIN/PREN/FOL AC/IRON TABLET 1 TAB PO (08:20)
[2023-09-06] MEDS: POLYSACCHARIDE IRON COMPLEX 150 MG CAPSULE PO (08:20)
--- NOTE | 2023-09-06 10:50 | PC.NURSE ---
Patient was given the opportunity to view the discharge video Mother & Baby Care, The First Two Weeks and to ask questions. Patient declined viewing the video and has been given the mother/baby guide for home reference.
--- NOTE | 2023-09-06 11:56 | PC.NURSE ---
[id number] Introductions were made, then consulted with patient to assess needs related to . Mother led the conversation with her?plans to feed?her infant and the?experience so far. Encouraged understanding of the benefits of skin to skin (demonstrating unwrapping and placing upright on her chest), stimulating with massage touch, changing positions to encourage wakefulness, how to watch for early feeding cues, responsive feeding, feeding on demand (aiming for 8-12 times in 24 hours, about every 2-3 hours), milk production, building/maintaining a milk supply, duration of feeding, signs of adequate intake/output and how to record on the feeding sheet. Mother works well with her with encouragement and education. Reviewed positioning and ear, shoulder, hip alignment, supporting the breast to facilitate a deep latch, asymmetrical latch (off-center), leading with the chin with a big, open, wide gape and body close to mother. Infant latched optimally to the left breast in cross cradle, then right breast with football position. Education given to the mother of how to visualize the suckling (with good rocking jaw motion), swallows (dropping of the lower jaw) and how to listen for drinking at the breast (the ka sound) demonstrated swallowing. was able to maintain latch without pain to mother protecting the nipple with optimal positioning and latching. Infant has had appropriate feedings in the last 24 hours meets the outcomes for weight, output, blood sugar and jaundice at this time. Reinforced understanding of milk production, transition of milk, signs of adequate intake, transition of stool, prevention/relief of engorgement, plugged ducts, mastitis, responsive watching for feeding cues, the different methods of stimulating infant to breastfeed 1-3 hours after the start of the last feeding, community resources, and when to call a provider using the resource of the feeding sheet along with the mom and baby guide. Mother voiced understanding of the information shared, is confident to continue effectively her infant at home, when to call for assistance, denies any additional assistance or education at this time. Reported to the Primary RN.
[2023-09-09 11:21] VITALS: BP 118/81; PULSE 96; RESP 18; TEMP 36.9; O2SAT 100
== END 2023-09-06 14:30 | disposition home or self-care (01) | DRG 768 ==
LOC: ANHOB2 09-06 13:27 → ANHLDR 09-09 08:08 → ANHOB2 09-09 08:08
PROVIDERS: Obstetrics & Gynecology; Admitting Provider Student in an Organized Health Care Education/Training Program; PCP Internal Medicine; Visit Provider Student in an Organized Health Care Education/Training Program
DX: O69.81X0 Labor and delivery complicated by cord around neck, without compression, not applicable or unspecified (principal); Z37.0 Single live birth; O70.20 Third degree perineal laceration during delivery, unspecified; Z3A.39 39 weeks gestation of pregnancy
CPT/HCPCS: 36415; 85014; 85018; 85025; 86592; 86850; 86900; 86901; A9270; J1200; J2590; J2795; J7120

== ENCOUNTER 2024-01-07 17:56 | Emergency (ER) | payer OTHER, SELFPAY ==
[2024-01-07 17:57] VITALS: BP 124/96; PULSE 88; RESP 18; TEMP 36.7; O2SAT 99
--- NOTE | 2024-01-07 17:57 | ED.SKABFB ---
HPI - Skin/Abscess/Foreign Bdy General Chief complaint: Wound/Laceration Stated complaint: laceration Time Seen by Provider: 01/07/24 17:57 Source: patient Mode of arrival: ambulatory Limitations: no limitations History of Present Illness HPI narrative: Patient is a 28-year-old female with a right palm laceration after a crock pot broke. This happened prior to arrival. complaint: laceration Onset (ago): minute(s) (30) Tetanus up to date: yes Location: R hand Severity: mild Severity scale (1-10): 2 Quality: burning Pain Consistency: constant Relieving factors: none Exacerbating factors: none Context: none Associated symptoms: denies other symptoms Treatments prior to arrival: none Related Data Home Medications Medication Instructions Recorded Confirmed No Home Medications 10/01/23 01/07/24 Allergies Allergy/AdvReac Type Severity Reaction Status Date / Time hydrocodone Allergy Mild Rash Verified 01/07/24 18:05 Review of Systems Review of Systems: All systems reviewed & are unremarkable except as noted in HPI and below Constitutional: Constitutional: Reports no additional constitutional complaints Eyes: Eyes: Reports no additional eye complaints ENT: Reports system reviewed and no additional complaints, except as documented Cardiovascular: Cardiovascular: Reports no additional cardiovascular complaints Respiratory: Respiratory: Reports no additional respiratory complaints Gastrointestinal: Gastrointestinal: Reports no additional gastrointestinal complaints Genitourinary: Genitourinary: Reports no additional female genitourinary complaints Musculoskeletal: Musculoskeletal: Reports no additional musculoskeletal complaints Integumentary/Breasts: Skin/Breast: Reports system reviewed and no additional complaints, except as docu Neurologic: Reports system reviewed and no additional complaints, except as documented Psychiatric: Psychiatric: Reports no additional psychiatric complaints Endocrine: Endocrine: Reports no additional endocrine complaints Hematologic/Lymphatic: Hematologic/Lymphatic: Reports no additional hematologic/lymphatic complaints Allergic/Immunologic: Allergic/Immunologic: Reports no additional allergic/immunologic complaints PMFSH Past Medical History Medical History Over weight and not yet delivered Vaginal tear resulting from childbirth repaired 04/06/2022 Surgical History Surgical History [place] teeth removed Family History Family History Mother Hypertension Father Hypertension Grandparent Diabetes mellitus Hypertension Grandparent No problems noted. Grandparent Diabetes mellitus Liver cancer Social History Social History Smoking status: Never smoker Second hand tobacco smoke exposure: No Alcohol intake: never Substance use: never Substance use type: does not use Do You Feel Safe in your Home?: Yes Lack of Transportation: No Lack of Food: Never True Current Housing: I Have Housing Concerned About Future Housing: No Difficulty Paying Gas/Electric Bills: No Difficulty Paying for Meds: No Currently Unemployed: No Education: Decline to Answer Difficulty w/ Childcare or Family Care: No Living arrangements: other Additional living arrangements comments: spouse 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
[2024-01-07] MEDS: LIDOCAINE HCL 1% LOCAL INJ 10 ML VIAL 8 ML INFILTRATE (18:32)
--- NOTE | 2024-01-07 18:55 | PC.NURSE ---
assumed care. report received from Zahira COLLADO
--- NOTE | 2024-01-07 20:10 | PC.NURSE ---
ER provider at the bedside
[2024-01-07] MEDS: NEOMYCIN/POLYMYXIN/BACITRACIN OINTMENT PACKET 1 PACKET TOPICAL (20:31)
[2024-01-07 20:32] VITALS: BP 122/88; PULSE 82; RESP 18; O2SAT 99
== END 2024-01-07 20:32 | disposition home or self-care (01) ==
PROVIDERS: Emergency Provider Emergency Medicine; PCP Internal Medicine
DX: S61.411A Laceration without foreign body of right hand, initial encounter (principal); W45.8XXA Other foreign body or object entering through skin, initial encounter
CPT/HCPCS: 12001; 99282

== ENCOUNTER 2024-09-23 13:09 | Outpatient (CLI) | payer OTHER, SELFPAY ==
[2024-09-23 13:29] LABS: Basophils Absolute Auto 0.06 K/mm3 (0.00-0.10); Basophils Percent Auto 0.8 % (0.0-1.0); Eosinophils Absolute Auto 0.19 K/mm3 (0.02-0.50); Eosinophils Percent Auto 2.5 % (1.0-6.0); Hematocrit 38.8 % (35.0-49.0); Hemoglobin 12.7 g/dL (12.0-15.0); Immature Granulocyte Absolute 0.02 K/mm3 (0.00-0.00); Immature Granulocyte Percent A 0.3 % (0.0-0.0); Lymphocytes Absolute Auto 1.89 K/mm3 (1.10-4.50); Lymphocytes Percent Auto 24.8 % (18.0-42.0); Mean Corpuscular HGB Conc 32.7 g/dL (32-36); Mean Corpuscular Volume 85.5 fL (78.0-102.0); Mean Platelet Volume 9.8 fl (9.2-11.8); Monocytes Absolute Auto 0.44 K/mm3 (0.10-0.90); Monocytes Percent Auto 5.8 % (2.0-11.0); Neutrophils Absolute Auto 5.01 K/mm3 (1.70-7.20); Neutrophils Percent Auto 65.8 % (50.0-70.0); Platelet Count Result 281 K/mm3 (150-420); Red Blood Count 4.54 M/mm3 (4.20-5.40); Red Cell Distribution Width 13.4 % (11.6-14.4); White Blood Count 7.6 K/mm3 (4.8-10.8)
--- OUTSIDE RECORDS SUMMARY | 2024-09-23 14:13 | XMS_ITS | Clinical Summary ---
Author Organization [facility] Address [address] [place] [address] Care Team Providers Care Bike Shop Manager Name Role Phone Omid Emmanuel MD Primary Care Provider [phone] Source Comments [facility],non-owned Affiliates and Associated Physician Practices is amultiple site organization consisting of ambulatory clinics and hospital sitesin [place], [place], [place] and [place]. This disclosure is being madepursuant to the Care Everywhere program and may not contain all information available regarding this patient. Last updated 18.[facility] Allergies Active Allergy Reactions Criticality Noted Date Comments Adhesive Sensitivity Rash Medium 04/06/2022 Hydrocodone Rash Medium 09/27/2021 Medications * Be aware that medications may not be up to date on this document. Alwaysverify current medications with the patient. traMADol (Ultram) 50 MG tablet Take 1 (one) tablet by mouth every 6 hours as needed for Pain 15 tablet Active Additional Information Patient not taking.Reported on 04/16/2022 Active Problems No known active problems Family History Medical History Relation Name Comments Hypertension Father Diabetes - Type 2 Maternal Grandfather Hypertension Maternal Grandfather Diabetes - Type 2 Maternal Grandmother Hypertension Mother Diabetes - Type 2 Paternal Grandfather Hypertension Paternal Grandfather Relation Name Status Comments Father Alive Maternal Grandfather Alive Maternal Grandmother Alive Mother Alive Paternal Grandfather Alive Paternal Grandmother Alive Social History Tobacco Use Types Packs/Day Years Used Date Smoking Tobacco: Never Smokeless Tobacco: Never Tobacco Cessation:Counseling Given: Not Answered Alcohol Use Standard Drinks/Week Comments Yes 0 (1 standard drink = 0.6 oz pur e alcohol) AUDIT-C Answer Date Recorded Q1: How often do you have a drink containing alc ohol? Monthly or less 04/06/2022 Average Number of Drinks Not on file 022 Frequency of Binge Drinking Not on file 03/11 Comments No Sex and Gender Information Value Date Recorded Sex Assigned at Not on file Legal Sex Female 12:02 PM CDT Gender Identity Not on file Sexual Orientation Not on file Last Filed Vital Signs Vital Sign Reading Time Taken Comments Blood Pressure 120/70 05/14/2022 1:32 PM HAND DEVELOPER Pulse 76 04/06/2022 3:54 PM CDT Temperature 36.2 C (97.2 F) 05/14/2022 1:32 PM HAND DEVELOPER Respiratory Rate 14 04/06/2022 3:54 PM CDT Oxygen Saturation 99% 04/06/2022 3:54 PM CDT Inhaled Oxygen Concentration - - Weight 68.7 kg (151 lb 6.4 oz) 05/14/2022 1:32 P M HAND DEVELOPER Height 157.5 cm (5' 2 ) 05/14/2022 1:32 PM HAND DEVELOPER Body Mass Index 27.69 05/14/2022 1:32 PM HAND DEVELOPER Plan of Treatment Health Maintenance Due Date Last Done Comments PAP SMEAR 1994 HIV SCREENING 2009 HEPATITIS C SCREENING 11/20/2012 DTAP/TDAP/TD VACCINES (1 - Tdap) 2013 HEPATITIS B VACCINE (1 of 3 - 19+ 3-dose series) 2013 COVID-19 VACCINE ( - 2023-2 5 season) 2024 DEPRESSION SCREENING 06/10/2024 INFLUENZA VACCINE (Season Ended) 2025 ZOSTER VACCINE (1 of 2) 2044 HIB VACCINE Aged Out No longer eligi ble based on patient's age to complete this topic HPV VACCINE Aged Out No longer eligi ble based on patient's age to complete this topic MENINGOCOCCAL (Group B) VACC INE SHARED DECISION-MAKING Aged Out No longer eligibl e based on patient's age to complete this topic MENINGOCOCCAL GROUPS A/C/Y/W VACCINE Aged Out No longer eligible b ased on patient's age to complete this topic PNEUMOCOCCAL VACCINE Aged Out No long er eligible based on patient's age to complete this topic Insurance [employer] Care Teams Bike Shop Manager Relationship Specialty Start Date End Date Omid Emmanuel MD [address] [place] [address] PCP - General 09/14/21
[2024-09-23 14:20] LABS: HIV 1 P24 AG Negative (Negative); HIV 1/2 AB Negative (Negative)
[2024-09-25 05:05] LABS: CMV IgG Antibody <0.60 U/mL; Hepatitis B Surface Antigen NON-REACTIVE (NON-REACTIVE); Rubella IgG Antibody 1.51 Index; Varicella IgG Antibody 9.69 S/CO
== END 2024-09-23 13:10 | disposition home or self-care (01) ==
LOC: CHSLAB 13:11
PROVIDERS: PCP Internal Medicine; Visit Provider Obstetrics & Gynecology
DX: N91.2 Amenorrhea, unspecified (principal)
CPT/HCPCS: 36415; 84702; 85025; 86592; 86644; 86747; 86762; 86787; 86850; 86900; 86901; 87086; 87340; 87806

== ENCOUNTER 2024-09-25 07:12 | Outpatient (CLI) | payer OTHER, SELFPAY ==
--- NOTE | ~2024-09-25 | US_ITS ---
Pelvic ultrasound. Clinical History: Amenorrhea, first trimester Technique: Realtime transabdominal and transvaginal scanning of the pelvis was performed. Color flow Doppler and Doppler spectral analysis were performed. Findings: The uterus is anteverted, and contains an intrauterine gestational sac. Average sac diamete r of 2.4 cm corresponds to an estimated gestational age is 7 weeks 3 days. No pole or yolk sac present however. The right ovary measures 2.4 x 2.2 x 3.2 cm. No significant right ovarian or adnexal mass is seen. The left ovary measures 2.5 x 2.7 x 1.9 cm. No significant left ovarian or adnexal mass is seen. There is no evidence of free fluid in the cul de sac. Impression: Intrauterine gestational sac with estimated gestational age of 7 weeks 3 days by average sac diameter , but no visible pole or yolk sac. This is most compatible with blighted ovum/missed . Reviewed, dictated and finalized at [facility]. Impression: Intrauterine gestational sac with estimated gestational age of 7 weeks 3 days b y average sac diameter, but no visible pole or yolk sac. This is most com patible with blighted ovum/missed .
--- OUTSIDE RECORDS SUMMARY | 2024-09-25 07:16 | XMS_ITS | Clinical Summary ---
Author Organization [facility] Address [address] [place] [address] Care Team Providers Care Colleter Name Role Phone Omid Emmanuel MD Primary Care Provider [phone] Source Comments [facility],non-owned Affiliates and Associated Physician Practices is amultiple site organization consisting of ambulatory clinics and hospital sitesin [place], [place], [place] and [place]. This disclosure is being madepursuant to the Care Everywhere program and may not contain all information available regarding this patient. Last updated 18.[facility] Allergies Active Allergy Reactions Criticality Noted Date [...] Comments Blood Pressure 120/70 05/14/2022 1:32 PM MALL PLANT CARETAKER Pulse 76 04/06/2022 3:54 PM CDT Temperature 36.2 C (97.2 F) 05/14/2022 1:32 PM MALL PLANT CARETAKER Respiratory Rate 14 04/06/2022 3:54 PM CDT Oxygen Saturation 99% 04/06/2022 3:54 PM CDT Inhaled Oxygen Concentration - - Weight 68.7 kg (151 lb 6.4 oz) 05/14/2022 1:32 P M MALL PLANT CARETAKER Height 157.5 cm (5' 2 ) 05/14/2022 1:32 PM MALL PLANT CARETAKER Body Mass Index 27.69 05/14/2022 1:32 PM MALL PLANT CARETAKER Plan of Treatment Health Maintenance Due Date [...] complete this topic Insurance [employer] Care Teams Colleter Relationship Specialty Start Date End Date Omid Emmanuel MD [address] [place] [address] PCP - General 09/14/21
== END 2024-09-25 07:13 | disposition home or self-care (01) ==
LOC: CHSIMG 07:14
PROVIDERS: PCP Internal Medicine; Visit Provider Obstetrics & Gynecology
DX: N91.2 Amenorrhea, unspecified (principal)
CPT/HCPCS: 76801; 76817

== ENCOUNTER 2024-10-02 08:31 | Outpatient (CLI) | payer OTHER, SELFPAY ==
--- NOTE | ~2024-10-02 | US_ITS ---
EXAMINATION: US OB <= 14 weeks fetus DATE: 10/02/2024 08:53 INDICATION: Threatened during first trimester TECHNIQUE: Real-time pelvic ultrasound utilizing transabdominal probe was performed. The adolphin rosalba radiologist was not present for the study. COMPARISON: None. FINDINGS: The uterus measures 13.5 x 7.7 x 6.9 cm. There is an intrauterine gestational sac with a double deci duous sign but no discernible yolk sac or pole. The mean sac diameter measures 2.5 cm, which co rrelates with an estimated gestational age of 7 weeks and 4 days. The right ovary measures 3.6 x 2.2 x 3.0 cm. The left ovary measures 3.2 x 1.6 x 2.3 cm. There is a 1 .5 cm anechoic likely corpus luteum cyst in the right ovary. There is no free fluid in the pelvis. IMPRESSION: 1. No significant change post 7 days interval in a 2.5 cm intrauterine gestational sac which remains without a discernible yolk sac or pole consistent with a failed . Reviewed, dictated and finalized at location A. IMPRESSION: 1. No significant change post 7 days interval in a 2.5 cm intrauterine gestatio nal sac which remains without a discernible yolk sac or pole consistent w ith a failed .
--- OUTSIDE RECORDS SUMMARY | 2024-10-02 08:43 | XMS_ITS | Clinical Summary ---
Author Organization [facility] Address [address] [place] [address] Care Team Providers Care [employer] Senior Sergeant Name Role Phone Omid Emmanuel MD Primary Care Provider [phone] Source Comments [facility],non-owned Affiliates and Associated Physician Practices is amultiple site organization consisting of ambulatory clinics and hospital sitesin [place], [place], [place] and [place]. This disclosure is being madepursuant to the Care Everywhere program and may not contain all information available regarding this patient. Last updated 18.[facility] Allergies Active Allergy Reactions Criticality Noted [...] Comments Blood Pressure 120/70 05/14/2022 1:32 PM FRONT DESK AUXILIARY Pulse 76 04/06/2022 3:54 PM CDT Temperature 36.2 C (97.2 F) 05/14/2022 1:32 PM FRONT DESK AUXILIARY Respiratory Rate 14 04/06/2022 3:54 PM CDT Oxygen Saturation 99% 04/06/2022 3:54 PM CDT Inhaled Oxygen Concentration - - Weight 68.7 kg (151 lb 6.4 oz) 05/14/2022 1:32 P M [facility] DESK AUXILIARY Height 157.5 cm (5' 2 ) 05/14/2022 1:32 PM FRONT DESK AUXILIARY Body Mass Index 27.69 05/14/2022 1:32 PM FRONT DESK AUXILIARY Plan of Treatment Health Maintenance Due Date [...] complete this topic Insurance [employer] Care Teams [employer] Senior Sergeant Relationship Specialty Start Date End Date Omid Emmanuel MD [address] [place] [address] PCP - General 09/14/21
== END 2024-10-02 08:32 | disposition home or self-care (01) ==
LOC: CHSIMG 08:34
PROVIDERS: PCP Internal Medicine; Visit Provider Obstetrics & Gynecology
DX: O20.0 Threatened abortion (principal)
CPT/HCPCS: 76801

== ENCOUNTER 2024-10-30 07:54 | Outpatient (CLI) | payer OTHER, SELFPAY ==
--- NOTE | ~2024-10-30 | US_ITS ---
EXAM: PELVIC ULTRASOUND HISTORY: O20.0 - Threatened COMPARISON: Examination is compared with multiple prior studies performed most recently on 10/16/2024 a nd dating back to 09/25/2024. FINDINGS: UTERUS: 9.5 x 5.4 x 3.4 cm. The uterus is anteverted and anteflexed. The endometrial complex measures 8.7mm, and is heterogeneous in echogenicity. No inherent vascularity is identified. RIGHT OVARY: The right ovary is unremarkable in echogenicity and size measuring 3.7 x 3.1 x 2.0 cm. Dopplerable flow is identified. LEFT OVARY: The left ovary is unremarkable in echogenicity and size measuring 3.3 x 2.1 x 2.7 cm Dopplerable flow is identified. No free fluid is identified within the pelvis. IMPRESSION: Heterogeneous endometrial complex which is avascular and not significantly thickened, as detailed abo ve. Reviewed, dictated and finalized at location A. IMPRESSION: Heterogeneous endometrial complex which is avascular and not significantly thic kened, as detailed above.
--- OUTSIDE RECORDS SUMMARY | 2024-10-30 07:56 | XMS_ITS | Clinical Summary ---
Author Organization [facility] Address [address] [place] [address] Care Team Providers Care Skin Pass Operator Name Role Phone Omid Emmanuel MD Primary Care Provider [phone] Source Comments [facility],non-owned Affiliates and Associated Physician Practices is amultiple site organization consisting of ambulatory clinics and hospital sitesin [place], [place]. This disclosure is being madepursuant to the Care Everywhere program and may not contain all information available regarding this patient. Last updated 18.[facility] Allergies Active Allergy Reactions Criticality Noted [...] Comments Blood Pressure 120/70 05/14/2022 1:32 PM REFERENCE SERVICES HEAD Pulse 76 04/06/2022 3:54 PM CDT Temperature 36.2 C (97.2 F) 05/14/2022 1:32 PM REFERENCE SERVICES HEAD Respiratory Rate 14 04/06/2022 3:54 PM CDT Oxygen Saturation 99% 04/06/2022 3:54 PM CDT Inhaled Oxygen Concentration - - Weight 68.7 kg (151 lb 6.4 oz) 05/14/2022 1:32 P M REFER[facility] SERVICES HEAD Height 157.5 cm (5' 2 ) 05/14/2022 1:32 PM REFERENCE SERVICES HEAD Body Mass Index 27.69 05/14/2022 1:32 PM REFERENCE SERVICES HEAD Plan of Treatment Health Maintenance Due Date [...] complete this topic Insurance [employer] Care Teams Skin Pass Operator Relationship Specialty Start Date End Date Omid Emmanuel MD [address] [place] [address] PCP - General 09/14/21
== END 2024-10-30 07:55 | disposition home or self-care (01) ==
LOC: CHSIMG 07:54
PROVIDERS: PCP Internal Medicine; Visit Provider Obstetrics & Gynecology
DX: O20.0 Threatened abortion (principal)
CPT/HCPCS: 76830

== ENCOUNTER 2025-04-01 07:30 | Outpatient (CLI) | payer OTHER, SELFPAY ==
--- OUTSIDE RECORDS SUMMARY | 2025-04-01 07:33 | XMS_ITS | Clinical Summary ---
Author Organization [facility] Address [address] [place] [address] Care Team Providers Care Validation Analyst Name Role Phone Omid Emmanuel MD Primary Care Provider [phone] Source Comments [facility],non-owned Affiliates and Associated Physician Practices is amultiple site organization consisting of ambulatory clinics and hospital sitesin [place], [place], [place] and [place]. This disclosure is being madepursuant to the Care Everywhere program and may not contain all information available regarding this patient. Last updated 18.[facility] Allergies Active Allergy Reactions Criticality Noted [...] Comments Blood Pressure 120/70 05/14/2022 1:32 PM GENERAL OPERATIONS MANAGER Pulse 76 04/06/2022 3:54 PM CDT Temperature 36.2 C (97.2 F) 05/14/2022 1:32 PM GENERAL OPERATIONS MANAGER Respiratory Rate 14 04/06/2022 3:54 PM CDT Oxygen Saturation 99% 04/06/2022 3:54 PM CDT Inhaled Oxygen Concentration - - Weight 68.7 kg (151 lb 6.4 oz) 05/14/2022 1:32 P M GENERAL OPERATIONS MANAGER Height 157.5 cm (5' 2) 05/14/2022 1:32 PM GENERAL OPERATIONS MANAGER Body Mass Index 27.69 05/14/2022 1:32 PM GENERAL OPERATIONS MANAGER Plan of Treatment Health Maintenance Due Date Last Done Comments HIV SCREENING 2009 HEPATITIS C SCREENING 11/20/2012 DTAP/TDAP/TD VACCINES (1 - Tdap) 2013 HEPATITIS B VACCINE (1 of 3 - 19+ 3-dose series) 2013 PAP SMEAR 11/26/2015 HPV VACCINE (1 - 3-dose SCDM series) 2021 DEPRESSION SCREENING 06/10/2024 COVID-19 VACCINE (1 - 2023-2 5 season) 2025 INFLUENZA VACCINE (#1) 2025 ZOSTER VACCINE (1 of 2) 2044 [...] age to complete this topic Insurance AETNA [facility] Address: [address] [address] Care Teams Validation Analyst Relationship Specialty Start Date End Date Omid Emmanuel MD [address] [place] [address] PCP - General 09/14/21
== END 2025-04-01 07:31 | disposition home or self-care (01) ==
LOC: CHSLAB 07:31
PROVIDERS: PCP Internal Medicine; Visit Provider Obstetrics & Gynecology
DX: N92.6 Irregular menstruation, unspecified (principal); Z31.9 Encounter for procreative management, unspecified
CPT/HCPCS: 83498; 84144